=== PATIENT | male | born 1965 | race Caucasian/White ===

== ENCOUNTER 2016-04-12 08:01 | Outpatient (CLI) ==
[2016-02-21 23:30] VITALS: BMI 22.4
[2016-04-12 08:36] LABS: ALBUMIN 3.9 g/dL (3.4-5.0); ALBUMIN/GLOBULIN RATIO 1.26; ANION GAP 13.7; BILIRUBIN,TOTAL 2.33 mg/dL (0.00-1.20); CALCIUM 9.4 mg/dL (8.2-10.2); POTASSIUM 4.7 mmol/L (3.5-5.1)
== END 2016-04-12 08:02 | disposition home or self-care (01) ==
LOC: LAB 08:01
PROVIDERS: ATTEND Internal Medicine Endocrinology, Diabetes & Metabolism
DX: E10.9 Type 1 diabetes mellitus without complications (principal); E78.5 Hyperlipidemia, unspecified
CPT/HCPCS: 36415; 80053; 82043; 83036

== ENCOUNTER 2016-07-14 16:30 | Emergency (ER) | payer OTHER ==
[2016-07-14 16:47] VITALS: BP 84/55; TEMP 97.7; BMI 21.0
--- NOTE | 2016-07-14 16:58 | ED.PDOC ---
General ED Provider: Dr. 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 BP 70/44. 84/[address] Ornelas end stage kidney failure. Drowsy alert oriented [ End ]30 minutes dizziness 97.7 58 18 92% 84/55 Time Seen by Physician: 16:56 Mode of Arrival: Wheelchair Information Source: Patient Exam Limitations: No limitations Primary Care Provider: FRANK VELASCO Nursing and Triage Documentation Reviewed and Agree: No Review of Systems - Review Of Systems Constitutional: Reports: Malaise, Weakness Eyes: Reports: No symptoms Ears, Nose, Mouth, Throat: Reports: No symptoms Respiratory: Reports: No symptoms Cardiac: Reports: Lightheadedness, Syncope GI: Reports: No symptoms : Reports: No symptoms Musculoskeletal: Reports: No symptoms Skin: Reports: No symptoms Neurological: Reports: No symptoms Endocrine: Reports: Increased thirst Hematologic/Lymphatic: Reports: No symptoms All Other Systems: Other Past Medical History - Past Medical History Previously Healthy: No Endocrine: Reports: DM 1 Cardiovascular: Reports: None, Hypertension Respiratory: Reports: None Hematological: Reports: None Gastrointestinal: Reports: None Genitourinary: Reports: CKD (stage 2 ) Neuro/Psych: Reports: None, Depression Musculoskeletal: Reports: Joint Pain Cancer: Reports: None - Surgical History General Surgical History: Reports: None, Orthopedic (trigger release right hand , shoulder manipulation bilateraly), Back Surgery (cervical spine fusion), Other (both eyes-cataracts) - Family History Family History: Reports: None - Social History Smoking Status: Former smoker Hx Substance Use: No Alcohol Screening: None Physical Exam - Physical Exam Appearance: Ill-appearing, Thin Ill-appearing: Mild Pain Distress: Mild Eyes: PRIYANKA, EOMI, Conjunctiva clear ENT: Ears normal, Nose normal, Oropharynx normal Neck: Supple Respiratory: Airway patent, Breath sounds clear, Breath sounds equal, Respirations nonlabored Cardiovascular: RRR, Pulses normal, Bradycardia GI/: Soft Musculoskeletal: Normal strength, ROM intact, No edema, No calf tenderness Skin: Warm, Dry, Normal color Neurological: Sensation intact, Motor intact, Reflexes intact, Cranial nerves intact, Alert, Oriented Psychiatric: Affect appropriate, Mood appropriate Interpretation - EKG Interpretation Time of EKG #1: 17:12 Rate: Ford Rhythm: Sinus ST Segment: Other (ant t inversion) Physician Notification - Case Discussed Physician Notified: jeffry Cameron([email or web address])[phone] Time of Notification: 17:45 Physician Notified: DR TENA' RN WILLIAMS WILL CALL BACK Time of Notification: 18:17 (19:15-ACCEPTED BY [facility] FOR DR CARLOS A KIM AT TRANSFER CENTER WILL CALL WITH ROOM) Critical Care Note - Critical Care Note Total Time (mins): 30 Course - Course Hematology/Chemistry: 07/14/16 17:00 07/14/16 17:00 Orders, Labs, Meds: Lab Review 07/14/16 17:00 WBC 8.37 RBC 5.01 Hgb 15.6 Hct 44.7 MCV 89.2 MCH 31.1 H MCHC 34.9 RDW Coeff of Seth 13.0 Plt Count 209 Immature Gran % (Auto) 0.1 Neut % (Auto) 59.2 Lymph % (Auto) 31.8 [place] % (Auto) 8.0 Eos % (Auto) 0.1 Baso % (Auto) 0.8 Immature Gran # (Auto) 0.0 Neut # 5.0 Lymph # 2.7 [place] # 0.7 Eos # 0.0 Baso # 0.1 D-Dimer (Manual) 408.34 Sodium 139 Potassium 3.5 Chloride 101 Carbon Dioxide 25 Anion Gap 16.5 BUN 16 Creatinine 1.10 Estimated GFR (MDRD) 71.00 BUN/Creatinine Ratio 14.54 Glucose 120 H Lactic Acid 15.5 Calcium 9.6 Total Bilirubin 1.19 AST 16 ALT 16 Alkaline Phosphatase 90 Total Creatine Kinase 34 Troponin I < 0.0100 B-Natriuretic Peptide 17 Total Protein 7.3 Albumin 4.0 Globulin 3.3 Albumin/Globulin Ratio 1.21 Procalcitonin 0.05 Orders Category Date Time Status EKG-(ED ONLY) Stat CARDIO 07/14/16 16:36 Completed Orthostatic [ED ORTHOSTATIC VITAL SIGNS] .ONCE EMERGENCY 07/14/16 16:36 Active B-TYPE NATRIURETIC PEPTIDE Stat LAB 07/14/16 17:00 Completed BLOOD CULTURE Stat LAB 07/14/16 17:00 Received CBC W/ AUTO DIFF Stat LAB 07/14/16 17:00 Completed COMPREHENSIVE METABOLIC PANEL Stat LAB 07/14/16 17:00 Completed CREATINE KINASE Stat LAB 07/14/16 17:00 Completed D-DIMER Stat LAB 07/14/16 17:00 Completed LACTIC ACID Stat LAB 07/14/16 17:00 Completed PROCALCITONIN Stat LAB 07/14/16 17:00 Completed TROPONIN I Stat LAB 07/14/16 17:00 Completed CHEST, 1V AP ONLY Stat RADS 07/14/16 16:36 Completed Vital Signs: Temp Pulse Resp BP Pulse Ox 07/14/16 16:34 97.7 F 58 L 18 84/55 L 92 L Departure - Departure Time of Disposition: 19:18 Disposition: TSF SHORT-TRM HOSP Discharge Problem: Bradycardia with 41-50 beats per minute Condition: Stable Pt referred to PMD for follow-up: Yes Allergies/Adverse Reactions: Allergies NSAIDS (Non-Steroidal Anti-Inflamma Adverse Reaction (Verified 07/14/16 16:45) Home Medications: Ambulatory Orders Atorvastatin Calcium [Lipitor] 10 mg PO DAILY 11/01/15 Insulin Pump Controller [Snap Insulin Pump Controller] 1 units PERFUSION DIRECTED 11/01/15 Lisinopril 2.5 mg PO DAILY 11/01/15 Insulin Lispro [Humalog] 100 unit SQ DIRECTED 02/23/16 Cholecalciferol (Vitamin D3) [Vitamin D3] 2,000 unit PO DAILY 07/14/16
[2016-07-14 17:09] LABS: BASOPHILS # (AUTO) 0.1 K/uL (0-0.2); BASOPHILS % (AUTO) 0.8 % (0.0-3.0); EOSINOPHILS % (AUTO) 0.1 % (0.0-7.0); HEMATOCRIT 44.7 % (42.0-52.0); HEMOGLOBIN 15.6 g/dl (14.0-18.0); IMMATURE GRANULOCYTE % (AUTO) 0.1 % (0.0-5.0); LYMPHOCYTES # (AUTO) 2.7 K/uL (0.60-3.4); LYMPHOCYTES % (AUTO) 31.8 (10.0-50.0); MEAN CORPUSCULAR HEMOGLOBIN 31.1 pg (27.0-31.0); MEAN CORPUSCULAR HGB CONC 34.9 (31.8-35.4); MEAN CORPUSCULAR VOLUME 89.2 fl (80.0-94.0); MONOCYTES # (AUTO) 0.7 K/uL (0.4-2.0); NEUTROPHILS % (AUTO) 59.2; PLATELET COUNT 209 10^3/uL (140-440); RED BLOOD COUNT 5.01 10^6/ul (4.70-6.10); WHITE BLOOD COUNT 8.37 K/ul (4.2-10.2)
[2016-07-14 17:35] LABS: ALANINE AMINOTRANSFERASE 16 U/L (12-78); ALBUMIN/GLOBULIN RATIO 1.21; ALKALINE PHOSPHATASE 90 U/L (50-136); ANION GAP 16.5; ASPARTATE AMINO TRANSFERASE 16 U/L (15-37); BILIRUBIN,TOTAL 1.19 mg/dL (0.00-1.20); BLOOD UREA NITROGEN 16 mg/dL (7-18); BUN/CREATININE RATIO 14.54; CALCIUM 9.6 mg/dL (8.2-10.2); CARBON DIOXIDE 25 mmol/L (21-32); CHLORIDE 101 mmol/L (98-107); CREATINE KINASE 34 U/L; GLUCOSE 120 mg/dL (70-100); POTASSIUM 3.5 mmol/L (3.5-5.1); SODIUM 139 mmol/L (136-145); TOTAL PROTEIN 7.3 g/dL (6.4-8.2)
--- NOTE | 2016-07-14 18:31 | DI ---
EXAMINATION: AP chest radiograph. HISTORY: Chest pain COMPARISON: None available. FINDINGS: No focal consolidation, pleural effusion or pneumothorax is identified. The cardiomediastinal silhouette is within normal limits. Lower cervical spine ACDF is seen. IMPRESSION: No acute cardiopulmonary findings.
== END 2016-07-14 20:35 | disposition short-term general hospital (02) ==
LOC: ED 16:30
DX: R00.1 Bradycardia, unspecified (principal); R42 Dizziness and giddiness; R55 Syncope and collapse; E10.9 Type 1 diabetes mellitus without complications; I12.9 Hypertensive chronic kidney disease with stage 1 through stage 4 chronic kidney disease, or unspecified chronic kidney disease; N18.2 Chronic kidney disease, stage 2 (mild); R53.1 Weakness; Z79.4 Long term (current) use of insulin; Z79.899 Other long term (current) drug therapy
CPT/HCPCS: 36415; 80053; 82550; 83605; 83880; 84145; 84484; 85025; 85379; 87040; 93005; 93010; 96360; 99285

== ENCOUNTER 2016-07-14 20:35 | Outpatient (CLI) ==
[2016-07-14 16:47] VITALS: BMI 21.0
== END 2016-07-14 20:36 ==
LOC: AMBL 20:35
PROVIDERS: ATTEND Family Medicine
DX: R53.83 Other fatigue (principal); E11.9 Type 2 diabetes mellitus without complications; R03.1 Nonspecific low blood-pressure reading; N19 Unspecified kidney failure

== ENCOUNTER 2016-09-30 08:51 | Outpatient (CLI) ==
[2016-09-30] MEDS ORDERED: HEPATITIS B VACCINE 20 MCG/ML IM ONE (10:18)
[2016-10-01 06:11] LABS: REF CREATININE 1.11 mg/dL (0.76-1.27); URINE TOTAL PROTEIN 24 HR 6.4 mg/dL (Not Estab.)
== END 2016-09-30 08:52 | disposition home or self-care (01) ==
LOC: LAB 08:51
PROVIDERS: ATTEND Internal Medicine Nephrology
DX: N18.6 End stage renal disease (principal)
CPT/HCPCS: 82575; 84156; 90471

== ENCOUNTER 2016-11-02 09:03 | Outpatient (CLI) ==
[2016-11-02 09:37] VITALS: BP 122/77; TEMP 97.2
[2016-11-02] MEDS ORDERED: HEPATITIS B VACCINE 20 MCG/ML IM ONE (09:37)
== END 2016-11-02 09:04 | disposition home or self-care (01) ==
LOC: OPMED 09:03
PROVIDERS: ATTEND Internal Medicine Nephrology
DX: N18.9 Chronic kidney disease, unspecified (principal)
CPT/HCPCS: 96372

== ENCOUNTER 2016-11-03 09:10 | Outpatient (CLI) ==
[2016-11-03] MEDS ORDERED: PREVNAR 13 SYRINGE IM ONE (09:51)
--- NOTE | 2016-11-03 15:15 | NM ---
EXAM: Gastric emptying study HISTORY: Diabetes. Preoperative evaluation. COMPARISON: None of this type. PROCEDURE: The patient was administered 2 mCi of 99m technetium sulfur colloid with 4 ounces of egg beaters, two piece of toast and 6 ounces of water as a solid phase meal. Imaging of the stomach w as performed at one hour intervals for 3 hours in anterior and posterior projections simultaneously. Subsequently time activity curves were calculated using anterior, posterior and geometric mean kenneth a. The gastric emptying half-time was determined. FINDINGS:The examination demonstrates a normal appearance of activity within the stomach. Sequentia l images demonstrate transit of activity from the stomach into the small bowel. The examination demo nstrates 24% emptying 1 hour, 63% emptying at 2 hours and 92% emptying at 3 hours The gastric emptyi ng half-time is approximately 1 hour 35 minutes. IMPRESSION: 1.The gastric emptying half-time is approximately 1 hour 35 minutes (prolonged) 2.Images of the activity in the stomach and small bowel are within normal limits.
== END 2016-11-03 09:11 | disposition home or self-care (01) ==
LOC: RAD 09:10
PROVIDERS: ATTEND Internal Medicine Nephrology
DX: N18.6 End stage renal disease (principal)
CPT/HCPCS: 90471; 96372

== ENCOUNTER 2016-11-23 13:17 | Outpatient (CLI) | END 2016-11-23 13:18 | disposition home or self-care (01) | LOC: LAB 13:17 | PROVIDERS: ATTEND Transplant Surgery | DX: N18.6 End stage renal disease (principal) | CPT/HCPCS: 36415 ==

== ENCOUNTER 2016-12-09 09:29 | Outpatient (CLI) | payer OTHER ==
[2016-12-09 10:31] VITALS: BP 128/84; TEMP 97.9
[2016-12-09] MEDS: HEPATITIS B VACCINE 20 MCG/ML IM ONE (15:35)
== END 2016-12-09 09:30 | disposition home or self-care (01) ==
LOC: OPMED 09:29
PROVIDERS: ATTEND Internal Medicine Nephrology
DX: N18.6 End stage renal disease (principal)
CPT/HCPCS: 96372

== ENCOUNTER 2016-12-23 14:03 | Outpatient (CLI) | END 2016-12-23 14:04 | disposition home or self-care (01) | LOC: LAB 14:03 | PROVIDERS: ATTEND Transplant Surgery | DX: N18.6 End stage renal disease (principal) | CPT/HCPCS: 36415 ==

== ENCOUNTER 2016-12-29 08:26 | Outpatient (CLI) | payer OTHER ==
[2016-12-29] MEDS ORDERED: PNEUMOVAX 23 IM ONE (08:53)
[2016-12-29 09:16] VITALS: BP 150/93; TEMP 97.8
== END 2016-12-29 09:09 | disposition home or self-care (01) ==
LOC: OPMED 08:26
PROVIDERS: ATTEND Internal Medicine Nephrology
DX: N18.6 End stage renal disease (principal)
CPT/HCPCS: 90471

== ENCOUNTER 2017-01-17 13:06 | Outpatient (CLI) | END 2017-01-17 13:07 | disposition home or self-care (01) | LOC: LAB 13:06 | PROVIDERS: ATTEND Transplant Surgery | DX: N18.6 End stage renal disease (principal) | CPT/HCPCS: 36415 ==

== ENCOUNTER 2017-04-18 08:44 | Outpatient (CLI) | END 2017-04-18 08:45 | disposition home or self-care (01) | LOC: LAB 08:44 | PROVIDERS: ATTEND Internal Medicine Nephrology | DX: Z94.0 Kidney transplant status (principal); Z79.899 Other long term (current) drug therapy; E78.5 Hyperlipidemia, unspecified | CPT/HCPCS: 36415; 80069; 80197; 85025; 87799 ==

== ENCOUNTER 2017-04-25 08:07 | Outpatient (CLI) | END 2017-04-25 08:08 | disposition home or self-care (01) | LOC: LAB 08:07 | PROVIDERS: ATTEND Internal Medicine Nephrology | DX: Z94.0 Kidney transplant status (principal); Z79.899 Other long term (current) drug therapy; E78.5 Hyperlipidemia, unspecified | CPT/HCPCS: 36415; 80069; 80197; 85025 ==

== ENCOUNTER 2017-05-02 08:07 | Outpatient (CLI) | END 2017-05-02 08:08 | disposition home or self-care (01) | LOC: LAB 08:07 | PROVIDERS: ATTEND Internal Medicine Nephrology | DX: Z94.0 Kidney transplant status (principal); Z79.899 Other long term (current) drug therapy; E78.5 Hyperlipidemia, unspecified; E10.65 Type 1 diabetes mellitus with hyperglycemia; R73.9 Hyperglycemia, unspecified | CPT/HCPCS: 36415; 80069; 80197; 82150; 83690; 85025; 87799 ==

== ENCOUNTER 2017-05-09 08:13 | Outpatient (CLI) | END 2017-05-09 08:14 | disposition home or self-care (01) | LOC: LAB 08:13 | PROVIDERS: ATTEND Internal Medicine Nephrology | DX: Z94.0 Kidney transplant status (principal); Z79.899 Other long term (current) drug therapy; E78.5 Hyperlipidemia, unspecified | CPT/HCPCS: 36415; 80069; 80197; 85025 ==

== ENCOUNTER 2017-05-16 08:15 | Outpatient (CLI) | END 2017-05-16 08:16 | disposition home or self-care (01) | LOC: LAB 08:15 | PROVIDERS: ATTEND Internal Medicine Nephrology | DX: Z94.0 Kidney transplant status (principal); Z79.899 Other long term (current) drug therapy; E78.5 Hyperlipidemia, unspecified | CPT/HCPCS: 36415; 80069; 80197; 85025 ==

== ENCOUNTER 2017-05-22 08:39 | Outpatient (CLI) | END 2017-05-22 08:40 | disposition home or self-care (01) | LOC: LAB 08:39 | PROVIDERS: ATTEND Internal Medicine Nephrology | DX: Z94.0 Kidney transplant status (principal); Z79.899 Other long term (current) drug therapy; E78.5 Hyperlipidemia, unspecified | CPT/HCPCS: 36415; 80069; 80197; 85025 ==

== ENCOUNTER 2017-05-30 07:23 | Outpatient (CLI) | END 2017-05-30 07:24 | disposition home or self-care (01) | LOC: LAB 07:23 | PROVIDERS: ATTEND Internal Medicine Nephrology | DX: Z94.0 Kidney transplant status (principal); Z79.899 Other long term (current) drug therapy; E78.5 Hyperlipidemia, unspecified | CPT/HCPCS: 36415; 80053; 80061; 80197; 84100; 85007; 85025; 87799 ==

== ENCOUNTER 2017-06-06 08:06 | Outpatient (CLI) | END 2017-06-06 08:07 | disposition home or self-care (01) | LOC: LAB 08:06 | PROVIDERS: ATTEND Internal Medicine Nephrology | DX: Z94.0 Kidney transplant status (principal); Z79.899 Other long term (current) drug therapy; E78.5 Hyperlipidemia, unspecified | CPT/HCPCS: 36415; 80069; 80197; 85025 ==

== ENCOUNTER 2017-06-13 07:48 | Outpatient (CLI) | payer OTHER | END 2017-06-13 07:49 | disposition home or self-care (01) | LOC: LAB 07:48 | PROVIDERS: ATTEND Internal Medicine Nephrology | DX: Z94.0 Kidney transplant status (principal); Z79.899 Other long term (current) drug therapy; E78.5 Hyperlipidemia, unspecified; E10.65 Type 1 diabetes mellitus with hyperglycemia; R73.9 Hyperglycemia, unspecified | CPT/HCPCS: 36415; 80069; 80197; 82150; 83690; 85025 ==

== ENCOUNTER 2017-06-21 07:42 | Outpatient (CLI) | END 2017-06-21 07:43 | disposition home or self-care (01) | LOC: LAB 07:42 | PROVIDERS: ATTEND Internal Medicine Nephrology | DX: Z94.0 Kidney transplant status (principal); Z79.899 Other long term (current) drug therapy; E78.5 Hyperlipidemia, unspecified; E10.65 Type 1 diabetes mellitus with hyperglycemia; R73.9 Hyperglycemia, unspecified | CPT/HCPCS: 36415; 80069; 80197; 82150; 83690; 85007; 85025 ==

== ENCOUNTER 2017-06-27 08:10 | Outpatient (CLI) | END 2017-06-27 08:11 | disposition home or self-care (01) | LOC: LAB 08:10 | PROVIDERS: ATTEND Internal Medicine Nephrology | DX: Z94.0 Kidney transplant status (principal); Z79.899 Other long term (current) drug therapy; E78.5 Hyperlipidemia, unspecified; E10.65 Type 1 diabetes mellitus with hyperglycemia; R73.9 Hyperglycemia, unspecified | CPT/HCPCS: 36415; 80069; 80197; 82150; 83690; 85025 ==

== ENCOUNTER 2017-07-04 08:00 | Outpatient (CLI) | END 2017-07-04 08:01 | disposition home or self-care (01) | LOC: LAB 08:00 | PROVIDERS: ATTEND Internal Medicine Nephrology | DX: Z94.0 Kidney transplant status (principal); Z79.899 Other long term (current) drug therapy; E78.5 Hyperlipidemia, unspecified; E10.65 Type 1 diabetes mellitus with hyperglycemia; R73.9 Hyperglycemia, unspecified | CPT/HCPCS: 36415; 80069; 80197; 82150; 83690; 85025; 87799 ==

== ENCOUNTER 2017-07-11 08:05 | Outpatient (CLI) | END 2017-07-11 08:06 | disposition home or self-care (01) | LOC: LAB 08:05 | PROVIDERS: ATTEND Internal Medicine Nephrology | DX: Z94.0 Kidney transplant status (principal); Z79.899 Other long term (current) drug therapy; E78.5 Hyperlipidemia, unspecified; E10.65 Type 1 diabetes mellitus with hyperglycemia; R73.9 Hyperglycemia, unspecified | CPT/HCPCS: 36415; 80069; 80197; 82150; 83690; 85025 ==

== ENCOUNTER 2017-07-26 07:38 | Outpatient (CLI) | END 2017-07-26 07:39 | disposition home or self-care (01) | LOC: LAB 07:38 | PROVIDERS: ATTEND Internal Medicine Nephrology | DX: Z94.0 Kidney transplant status (principal); Z79.899 Other long term (current) drug therapy; E78.5 Hyperlipidemia, unspecified; E10.65 Type 1 diabetes mellitus with hyperglycemia; R73.9 Hyperglycemia, unspecified | CPT/HCPCS: 36415; 80069; 80197; 82150; 83690; 85025 ==

== ENCOUNTER 2017-08-02 07:42 | Outpatient (CLI) | payer OTHER | END 2017-08-02 07:43 | disposition home or self-care (01) | LOC: LAB 07:42 | PROVIDERS: ATTEND Internal Medicine Nephrology | DX: Z94.0 Kidney transplant status (principal); Z79.899 Other long term (current) drug therapy; E78.5 Hyperlipidemia, unspecified; E10.65 Type 1 diabetes mellitus with hyperglycemia; R73.9 Hyperglycemia, unspecified | CPT/HCPCS: 36415; 80069; 80197; 82150; 83690; 85025 ==

== ENCOUNTER 2017-08-09 07:58 | Outpatient (CLI) | payer OTHER | END 2017-08-09 07:59 | disposition home or self-care (01) | LOC: LAB 07:58 | PROVIDERS: ATTEND Internal Medicine Nephrology | DX: Z94.0 Kidney transplant status (principal); Z79.899 Other long term (current) drug therapy; E78.5 Hyperlipidemia, unspecified; E10.65 Type 1 diabetes mellitus with hyperglycemia; R73.9 Hyperglycemia, unspecified | CPT/HCPCS: 36415; 80069; 80197; 82150; 83690; 85025 ==

== ENCOUNTER 2017-08-15 06:35 | Outpatient (CLI) | END 2017-08-15 06:36 | disposition home or self-care (01) | LOC: LAB 06:35 | PROVIDERS: ATTEND Internal Medicine Nephrology | DX: Z94.0 Kidney transplant status (principal); Z79.899 Other long term (current) drug therapy; E78.5 Hyperlipidemia, unspecified; E10.65 Type 1 diabetes mellitus with hyperglycemia; R73.9 Hyperglycemia, unspecified | CPT/HCPCS: 36415; 80069; 80197; 82150; 83690; 85025; 87799 ==

== ENCOUNTER 2017-08-23 07:48 | Outpatient (CLI) | END 2017-08-23 07:49 | disposition home or self-care (01) | LOC: LAB 07:48 | PROVIDERS: ATTEND Internal Medicine Nephrology | DX: Z94.83 Pancreas transplant status (principal); D89.9 Disorder involving the immune mechanism, unspecified; R79.89 Other specified abnormal findings of blood chemistry; E78.5 Hyperlipidemia, unspecified; R73.09 Other abnormal glucose | CPT/HCPCS: 36415; 80069; 80197; 82150; 83690; 85025 ==

== ENCOUNTER 2017-08-30 08:11 | Outpatient (CLI) | payer OTHER | END 2017-08-30 08:12 | disposition home or self-care (01) | LOC: LAB 08:11 | PROVIDERS: ATTEND Internal Medicine Nephrology | DX: Z94.83 Pancreas transplant status (principal); R73.09 Other abnormal glucose; E78.5 Hyperlipidemia, unspecified; R79.89 Other specified abnormal findings of blood chemistry; D89.9 Disorder involving the immune mechanism, unspecified | CPT/HCPCS: 36415; 80053; 80061; 80197; 82150; 83036; 83690; 84100; 84681; 85025 ==

== ENCOUNTER 2017-09-05 08:00 | Outpatient (CLI) | payer OTHER | END 2017-09-05 08:01 | disposition home or self-care (01) | LOC: LAB 08:00 | PROVIDERS: ATTEND Internal Medicine Nephrology | DX: Z94.83 Pancreas transplant status (principal); D89.9 Disorder involving the immune mechanism, unspecified; E78.5 Hyperlipidemia, unspecified; R73.09 Other abnormal glucose; R79.89 Other specified abnormal findings of blood chemistry | CPT/HCPCS: 36415; 80069; 80197; 82150; 83690; 85025 ==

== ENCOUNTER 2017-09-13 08:13 | Outpatient (CLI) | END 2017-09-13 08:14 | disposition home or self-care (01) | LOC: LAB 08:13 | PROVIDERS: ATTEND Internal Medicine Nephrology | DX: Z94.83 Pancreas transplant status (principal); D89.9 Disorder involving the immune mechanism, unspecified; R79.89 Other specified abnormal findings of blood chemistry; E78.5 Hyperlipidemia, unspecified; R73.09 Other abnormal glucose | CPT/HCPCS: 36415; 80069; 80197; 82150; 83690; 85025 ==

== ENCOUNTER 2017-09-20 08:23 | Outpatient (CLI) | END 2017-09-20 08:24 | disposition home or self-care (01) | LOC: LAB 08:23 | PROVIDERS: ATTEND Internal Medicine Nephrology | DX: Z94.83 Pancreas transplant status (principal); D89.9 Disorder involving the immune mechanism, unspecified; R79.89 Other specified abnormal findings of blood chemistry; E78.5 Hyperlipidemia, unspecified; R73.09 Other abnormal glucose | CPT/HCPCS: 36415; 80069; 80197; 82150; 83690; 85025 ==

== ENCOUNTER 2017-09-27 08:10 | Outpatient (CLI) | END 2017-09-27 08:11 | disposition home or self-care (01) | LOC: LAB 08:10 | PROVIDERS: ATTEND Internal Medicine Nephrology | DX: Z94.83 Pancreas transplant status (principal); D89.9 Disorder involving the immune mechanism, unspecified; R79.89 Other specified abnormal findings of blood chemistry; E78.5 Hyperlipidemia, unspecified; R73.09 Other abnormal glucose | CPT/HCPCS: 36415; 85025 ==

== ENCOUNTER 2017-10-04 07:19 | Outpatient (CLI) | END 2017-10-04 07:20 | disposition home or self-care (01) | LOC: LAB 07:19 | PROVIDERS: ATTEND Internal Medicine Nephrology | DX: Z94.83 Pancreas transplant status (principal); D89.9 Disorder involving the immune mechanism, unspecified; R79.89 Other specified abnormal findings of blood chemistry; E78.5 Hyperlipidemia, unspecified; R73.09 Other abnormal glucose | CPT/HCPCS: 36415; 80069; 80197; 82150; 83690 ==

== ENCOUNTER 2017-10-11 08:13 | Outpatient (CLI) | payer OTHER | END 2017-10-11 08:14 | disposition home or self-care (01) | LOC: LAB 08:13 | PROVIDERS: ATTEND Internal Medicine Nephrology | DX: Z94.83 Pancreas transplant status (principal); D89.9 Disorder involving the immune mechanism, unspecified; R79.89 Other specified abnormal findings of blood chemistry; E78.5 Hyperlipidemia, unspecified; R73.09 Other abnormal glucose | CPT/HCPCS: 36415; 80069; 80197; 82150; 83690; 85025 ==

== ENCOUNTER 2017-11-16 07:05 | Outpatient (CLI) | END 2017-11-16 07:06 | disposition home or self-care (01) | LOC: LAB 07:05 | PROVIDERS: ATTEND Internal Medicine Nephrology | DX: Z94.83 Pancreas transplant status (principal); D89.9 Disorder involving the immune mechanism, unspecified; R79.89 Other specified abnormal findings of blood chemistry; E78.5 Hyperlipidemia, unspecified; R73.09 Other abnormal glucose | CPT/HCPCS: 36415; 80069; 80197; 82150; 83690; 85025 ==

== ENCOUNTER 2017-11-30 07:45 | Outpatient (CLI) | payer OTHER | END 2017-11-30 07:46 | disposition home or self-care (01) | LOC: LAB 07:45 | PROVIDERS: ATTEND Internal Medicine Nephrology | DX: Z94.83 Pancreas transplant status (principal); R79.89 Other specified abnormal findings of blood chemistry; D89.9 Disorder involving the immune mechanism, unspecified; E78.5 Hyperlipidemia, unspecified; R73.09 Other abnormal glucose | CPT/HCPCS: 36415; 80053; 80061; 80197; 82150; 83036; 83690; 84100; 84681; 85025 ==

== ENCOUNTER 2018-01-02 07:07 | Outpatient (CLI) | END 2018-01-02 07:08 | disposition home or self-care (01) | LOC: LAB 07:07 | PROVIDERS: ATTEND Internal Medicine Nephrology | DX: Z94.83 Pancreas transplant status (principal); R53.83 Other fatigue; E78.5 Hyperlipidemia, unspecified; D89.9 Disorder involving the immune mechanism, unspecified; R79.89 Other specified abnormal findings of blood chemistry; R73.09 Other abnormal glucose | CPT/HCPCS: 36415; 80069; 80197; 82150; 83690; 84443; 85025; 87799 ==

== ENCOUNTER 2018-01-17 06:42 | Outpatient (CLI) | payer OTHER | END 2018-01-17 06:43 | disposition home or self-care (01) | LOC: LAB 06:42 | PROVIDERS: ATTEND Internal Medicine Nephrology | DX: Z94.83 Pancreas transplant status (principal); D89.9 Disorder involving the immune mechanism, unspecified; R79.89 Other specified abnormal findings of blood chemistry; E78.5 Hyperlipidemia, unspecified; R73.09 Other abnormal glucose | CPT/HCPCS: 36415; 80069; 80197; 82150; 83690; 85025 ==

== ENCOUNTER 2018-02-24 | Outpatient (CLI) | END 2018-02-24 07:38 | disposition home or self-care (01) | CPT/HCPCS: 36415; 80069; 80197; 82150; 83690; 85025 ==

== ENCOUNTER 2018-03-03 07:29 | Outpatient (CLI) | END 2018-03-03 07:30 | disposition home or self-care (01) | LOC: LAB 07:29 | PROVIDERS: ATTEND Internal Medicine Nephrology | DX: Z94.0 Kidney transplant status (principal); D89.9 Disorder involving the immune mechanism, unspecified; B25.9 Cytomegaloviral disease, unspecified | CPT/HCPCS: 36415; 80069; 80197; 82150; 83690; 85025 ==

== ENCOUNTER 2018-03-10 07:30 | Outpatient (CLI) | payer OTHER | END 2018-03-10 07:31 | disposition home or self-care (01) | LOC: LAB 07:30 | PROVIDERS: ATTEND Internal Medicine Nephrology | DX: Z94.0 Kidney transplant status (principal); D89.9 Disorder involving the immune mechanism, unspecified; B25.9 Cytomegaloviral disease, unspecified | CPT/HCPCS: 36415; 80069; 80197; 82150; 83690; 85025 ==

== ENCOUNTER 2018-03-17 07:24 | Outpatient (CLI) | END 2018-03-17 07:25 | disposition home or self-care (01) | LOC: LAB 07:24 | PROVIDERS: ATTEND Internal Medicine Nephrology | DX: Z94.0 Kidney transplant status (principal); D89.9 Disorder involving the immune mechanism, unspecified; B25.9 Cytomegaloviral disease, unspecified | CPT/HCPCS: 36415; 80069; 80197; 82150; 83690; 85025 ==

== ENCOUNTER 2018-03-31 07:20 | Outpatient (CLI) | payer OTHER | END 2018-03-31 07:21 | disposition home or self-care (01) | LOC: LAB 07:20 | PROVIDERS: ATTEND Internal Medicine Nephrology | DX: Z94.0 Kidney transplant status (principal); D89.9 Disorder involving the immune mechanism, unspecified; B25.9 Cytomegaloviral disease, unspecified | CPT/HCPCS: 36415; 80069; 80197; 82150; 83690; 85025 ==

== ENCOUNTER 2018-04-07 08:04 | Outpatient (CLI) | payer OTHER | END 2018-04-07 08:05 | disposition home or self-care (01) | LOC: LAB 08:04 | PROVIDERS: ATTEND Internal Medicine Nephrology | DX: Z94.0 Kidney transplant status (principal); D89.9 Disorder involving the immune mechanism, unspecified; B25.9 Cytomegaloviral disease, unspecified | CPT/HCPCS: 36415; 80069; 80197; 82150; 83690; 85025 ==

== ENCOUNTER 2018-04-14 07:08 | Outpatient (CLI) | END 2018-04-14 07:09 | disposition home or self-care (01) | LOC: LAB 07:08 | PROVIDERS: ATTEND Internal Medicine Nephrology | DX: Z94.0 Kidney transplant status (principal); D89.9 Disorder involving the immune mechanism, unspecified; B25.9 Cytomegaloviral disease, unspecified | CPT/HCPCS: 36415; 80069; 80197; 82150; 83690; 85025 ==

== ENCOUNTER 2018-04-21 08:23 | Outpatient (CLI) | payer OTHER | END 2018-04-21 08:24 | disposition home or self-care (01) | LOC: LAB 08:23 | PROVIDERS: ATTEND Internal Medicine Nephrology | DX: Z94.0 Kidney transplant status (principal); D89.9 Disorder involving the immune mechanism, unspecified; B25.9 Cytomegaloviral disease, unspecified | CPT/HCPCS: 36415; 80069; 80197; 82150; 83690; 85025 ==

== ENCOUNTER 2018-05-02 08:01 | Outpatient (CLI) | payer OTHER | END 2018-05-02 08:02 | disposition home or self-care (01) | LOC: LAB 08:01 | PROVIDERS: ATTEND Internal Medicine Nephrology | DX: Z94.0 Kidney transplant status (principal); D89.9 Disorder involving the immune mechanism, unspecified; B25.9 Cytomegaloviral disease, unspecified | CPT/HCPCS: 36415; 80069; 80197; 82150; 83690; 85025 ==

== ENCOUNTER 2018-05-11 07:43 | Outpatient (CLI) | END 2018-05-11 07:44 | disposition home or self-care (01) | LOC: LAB 07:43 | PROVIDERS: ATTEND Internal Medicine Nephrology | DX: Z94.0 Kidney transplant status (principal); D89.9 Disorder involving the immune mechanism, unspecified; B25.9 Cytomegaloviral disease, unspecified | CPT/HCPCS: 36415; 80069; 80197; 82150; 83690; 85025 ==

== ENCOUNTER 2018-05-23 07:42 | Outpatient (CLI) | END 2018-05-23 07:43 | disposition home or self-care (01) | LOC: LAB 07:42 | PROVIDERS: ATTEND Internal Medicine Nephrology | DX: Z94.0 Kidney transplant status (principal); D89.9 Disorder involving the immune mechanism, unspecified; B25.9 Cytomegaloviral disease, unspecified | CPT/HCPCS: 36415; 80069; 80197; 82150; 83690; 85025 ==

== ENCOUNTER 2018-06-02 06:42 | Outpatient (CLI) | END 2018-06-02 06:43 | disposition home or self-care (01) | LOC: LAB 06:42 | PROVIDERS: ATTEND Internal Medicine Nephrology | DX: Z94.0 Kidney transplant status (principal); D89.9 Disorder involving the immune mechanism, unspecified; B25.9 Cytomegaloviral disease, unspecified | CPT/HCPCS: 36415; 80069; 80197; 82150; 83690; 85025 ==

== ENCOUNTER 2018-06-05 07:59 | Outpatient (CLI) | payer OTHER | END 2018-06-05 08:00 | disposition home or self-care (01) | LOC: LAB 07:59 | PROVIDERS: ATTEND Internal Medicine Nephrology | DX: Z94.0 Kidney transplant status (principal); E10.29 Type 1 diabetes mellitus with other diabetic kidney complication; E10.65 Type 1 diabetes mellitus with hyperglycemia; Z94.83 Pancreas transplant status; D89.9 Disorder involving the immune mechanism, unspecified; B25.9 Cytomegaloviral disease, unspecified | CPT/HCPCS: 36415; 80069; 80197; 82150; 83036; 83690; 84681; 85025 ==

== ENCOUNTER 2018-06-06 16:19 | Emergency (ER) ==
[2018-06-06 16:28] VITALS: BP 132/81; TEMP 99; BMI 19.2
[2018-06-06] MEDS ORDERED: SODIUM CHLORIDE 1,000 ML IV STA (16:57)
[2018-06-06] MEDS ORDERED: ZOFRAN 4 MG/2 ML IVP STA (16:57)
[2018-06-06] MEDS ORDERED: DILAUDID 1 MG/ML SYRINGE IVP STA (16:58)
--- NOTE | 2018-06-06 17:03 | ED.PDOC ---
General ED Provider: Dr. LYSSA GALLOWAY Chief Complaint: Abdominal Pain Stated Complaint: severe abdominal pain.acute pancreatic pain. Patient is a pancreatic transplant recepient. Onset of severe pain in Rt LOWER ABDOMEN earlier today. Pain in 12/07 with associated nausea but no emesis Time Seen by Physician: 16:45 Mode of Arrival: Walk-In Information Source: Patient Exam Limitations: No limitations Primary Care Provider: FRANK VELASCO Nursing and Triage Documentation Reviewed and Agree: Yes Does patient meet sepsis criteria?: No System Inflammatory Response Syndrome: Not Applicable Sepsis Protocol: For patient's 13 years and over: Temp is 96.8 and below OR 101 and greater Pulse >90 BPM Resp >20/minute Acutely Altered Mental Status Are patient's symptoms suggestive of a new infection, such as: -Pneumonia -Skin, Soft Tissue -Endocarditis -UTI -Bone, Joint Infection -Implantable Device -Acute Abdominal Infection -Wound Infection -Meningitis -Blood Stream Catheter Infection -Unknown Review of Systems - Review Of Systems Constitutional: Reports: Weakness, Sweats, Loss of appetite Eyes: Reports: No symptoms Ears, Nose, Mouth, Throat: Reports: No symptoms Respiratory: Reports: No symptoms Cardiac: Reports: No symptoms GI: Reports: Abdominal pain : Reports: No symptoms Musculoskeletal: Reports: No symptoms Skin: Reports: No symptoms Neurological: Reports: No symptoms Endocrine: Reports: No symptoms Hematologic/Lymphatic: Reports: No symptoms All Other Systems: Reviewed and Negative Past Medical History - Past Medical History Previously Healthy: No Endocrine: Reports: DM 1 Cardiovascular: Reports: None, Hypertension Respiratory: Reports: None Hematological: Reports: None Gastrointestinal: Reports: None Genitourinary: Reports: CKD (stage 2 ) Neuro/Psych: Reports: None, Depression Musculoskeletal: Reports: Joint Pain Cancer: Reports: None Other Pertinent Past Medical History: both eyes-cataracts, cervical spine fusion - Surgical History General Surgical History: Reports: None, Orthopedic (trigger release right hand , shoulder manipulation bilateraly), Back Surgery (cervical spine fusion), Other (both eyes-cataracts, PANCREATIC TRANSPLANT) - Family History Family History: Reports: None - Social History Smoking Status: Former smoker Hx Substance Use: No Alcohol Screening: None Physical Exam - Physical Exam Appearance: Ill-appearing, Thin Ill-appearing: Moderate Pain Distress: Severe Eyes: PRIYANKA, EOMI, Conjunctiva clear ENT: Ears normal, Nose normal, Oropharynx normal Neck: Supple Respiratory: Airway patent Cardiovascular: RRR, Pulses normal, No rub, No murmur GI/: Soft, Tender, Bowel sounds hypoactive Musculoskeletal: Normal strength, ROM intact, No edema, No calf tenderness Skin: Warm, Dry, Normal color Neurological: Sensation intact, Motor intact, Reflexes intact, Cranial nerves intact, Alert, Oriented Psychiatric: Affect appropriate, Mood appropriate Re-Evaluation - Re-Evaluation Time of Re-Evaluation: 19:00 Status: Improved Vital Signs Stable: Yes Appearance: NAD Lungs: Clear Skin: Warm and Dry Neuro: Alert and Oriented X3 CV: RRR Critical Care Note - Critical Care Note Total Time (mins): 120 Course - Course Hematology/Chemistry: 06/06/18 17:10 06/06/18 17:10 Orders, Labs, Meds: Lab Review 06/06/18 06/06/18 06/06/18 17:09 17:10 17:10 WBC 12.50 H RBC 4.73 Hgb 14.9 Hct 43.4 MCV 91.8 MCH 31.5 H MCHC 34.3 RDW Coeff of Seth 13.6 Plt Count 396 Immature Gran % (Auto) 0.2 Neut % (Auto) 85.0 Lymph % (Auto) 12.0 [place] % (Auto) 2.5 Eos % (Auto) 0.0 Baso % (Auto) 0.3 Immature Gran # (Auto) 0.0 Neut # (Auto) 10.6 H Lymph # (Auto) 1.5 [place] # (Auto) 0.3 L Eos # (Auto) 0.0 Baso # (Auto) 0.0 PT 11.5 H INR 1.15 APTT 32.3 Sodium Potassium Chloride Carbon Dioxide Anion Gap BUN Creatinine Estimated GFR (MDRD) BUN/Creatinine Ratio Glucose Lactic Acid Calcium Total Bilirubin AST ALT Alkaline Phosphatase Total Protein Albumin Globulin Albumin/Globulin Ratio Amylase 152.7 H Lipase Procalcitonin 06/06/18 06/06/18 06/06/18 17:10 17:10 17:10 WBC RBC Hgb Hct MCV MCH MCHC RDW Coeff of Seth Plt Count Immature Gran % (Auto) Neut % (Auto) Lymph % (Auto) [place] % (Auto) Eos % (Auto) Baso % (Auto) Immature Gran # (Auto) Neut # (Auto) Lymph # (Auto) [place] # (Auto) Eos # (Auto) Baso # (Auto) PT INR APTT Sodium 137.2 Potassium 4.02 Chloride 102.5 Carbon Dioxide 24.9 Anion Gap 13.82 BUN 20.2 H Creatinine 1.22 H Estimated GFR (MDRD) 63.00 BUN/Creatinine Ratio 16.55 Glucose 124.1 H Lactic Acid 1.11 Calcium 9.51 Total Bilirubin 1.07 AST 24.7 ALT 13.9 Alkaline Phosphatase 93.6 Total Protein 7.35 Albumin 4.49 Globulin 2.86 Albumin/Globulin Ratio 1.56 Amylase Lipase 254.3 Procalcitonin < 0.05 Orders Category Date Time Status IV [ED IV/MEDIPORT/POWERPORT] .ONCE EMERGENCY 06/06/18 16:55 Active AMYLASE Stat LAB 06/06/18 17:09 Completed BLOOD CULTURE (ED ONLY) Stat LAB 06/06/18 17:10 Received CBC W/ AUTO DIFF Stat LAB 06/06/18 17:10 Completed CMP [COMPREHENSIVE METABOLIC PANEL] Stat LAB 06/06/18 17:10 Completed LACTIC ACID Stat LAB 06/06/18 17:10 Completed LIPASE Stat LAB 06/06/18 17:10 Completed PARTIAL THROMBOPLASTIN TIME Stat LAB 06/06/18 17:10 Completed PROCALCITONIN Stat LAB 06/06/18 17:10 Completed PT WITH INR Stat LAB 06/06/18 17:10 Completed UA [URINALYSIS C & S IF INDICATED] Stat LAB 06/06/18 16:56 Uncollected 0.9 % Sodium Chloride [Saline Flush] MEDS 06/06/18 16:55 Active 1 syr IVF PRN PRN Hydromorphone HCl [Dilaudid 1 mg/ml Syringe] MEDS 06/06/18 18:40 Discontinued 1 mg IM ONCE STA Hydromorphone HCl [Dilaudid 1 mg/ml Syringe] MEDS 06/06/18 16:58 Discontinued 1 mg IVP ONCE STA Ondansetron HCl/Pf [Zofran 4 mg/2 ml] MEDS 06/06/18 16:57 Discontinued 4 mg IVP ONCE STA Piperacillin Sodium/Tazobactam [Zosyn 3.375 gm] 3.375 MEDS 06/06/18 18:51 Active gm 0.9 % Sodium Chloride [Sodium Chloride] 50 ml IV ONCE Sodium Chloride 0.9% [Sodium Chloride] 1,000 ml MEDS 06/06/18 16:[address] ABDOMEN/PELVIS WO CONTRAST Stat RADS 06/06/18 17:08 Completed Medications Generic Name Dose Route Start Last Admin Trade Name Freanny PRN Reason Stop Dose Admin Piperacillin Sod/Tazobactam 50 mls @ 50 mls/hr 06/06/18 18:51 06/06/18 19:01 Sod 3.375 gm/ Sodium Chloride IV 06/06/18 19:50 50 mls/hr ONCE STA Administration Sodium Chloride 1 syr 06/06/18 16:55 Saline Flush IVF PRN PRN To flush IV Discontinued Medications Generic Name Dose Route Start Last Admin Trade Name Freq PRN Reason Stop Dose Admin Hydromorphone HCl 1 mg 06/06/18 16:58 06/06/18 17:29 Dilaudid 1 Mg/Ml Syringe IVP 06/06/18 16:59 1 mg ONCE STA Administration Hydromorphone HCl 1 mg 06/06/18 18:40 06/06/18 18:43 Dilaudid 1 Mg/Ml Syringe IM 06/06/18 18:41 1 mg ONCE STA Administration Sodium Chloride 1,000 mls @ 1,000 mls/hr 06/06/18 16:57 06/06/18 17:28 Sodium Chloride IV 06/06/18 17:56 1,000 mls/hr BOLUS STA Administration Ondansetron HCl 4 mg 06/06/18 16:57 06/06/18 17:31 Zofran 4 Mg/2 Ml IVP 06/06/18 16:58 4 mg ONCE STA Administration Vital Signs: Temp Pulse Resp BP Pulse Ox 06/06/18 16:21 99.0 F 98 H 20 132/81 98 Departure - Departure Time of Disposition: 19:40 Disposition: TSF SHORT-TRM HOSP Discharge Problem: Acute abdominal pain in right lower quadrant Condition: Stable Pt referred to PMD for follow-up: Yes IPMP verified?: No Allergies/Adverse Reactions: Allergies NSAIDS (Non-Steroidal Anti-Inflamma Adverse Reaction (Verified 06/06/18 16:28) Home Medications: Ambulatory Orders Atorvastatin Calcium [Lipitor] 10 mg PO DAILY 11/01/15 Cholecalciferol (Vitamin D3) [Vitamin D3] 2,000 unit PO DAILY 07/14/16 Aspirin 81 mg PO ONCE 10/18/17 Famotidine [Pepcid] 20 mg PO DAILY PRN 10/18/17 Sulfamethoxazole/Trimethoprim [Bactrim Ds Tablet] 1 each PO DAILY 10/18/17 Tacrolimus [Envarsus Xr] 2 mg PO DAILY 10/18/17 Prednisone 5 mg PO DAILY tab-cap 12/30/17 Valganciclovir HCl [Valcyte] 450 mg PO DAILY 01/31/18 Mycophenolate Sodium [Myfortic] 360 mg PO DAILY 06/06/18 Rivaroxaban [Xarelto] 20 mg PO DAILY 06/06/18 Sennosides [Senokot] 8.6 mg PO BID 06/06/18 Transfer Form Completed: Yes Disposition Discussed With: Patient, Family GI Complaint Exam - Abdominal Pain Complaint/Exam Onset: Sudden Duration: 3 hrs Symptoms Are: Worse Additional Information: 1844 NOTIFIED BY RADIOLOGIST OF FINDINGS OF CT ABDOMEN SUSPECTED ACUTE INFLAMMATORY CHANGES IN RLQ, POSSIBLE EXTRALUMINAL AIR WITH POCKET OF AIR IN RT PELVIC GUTTER 1849: ADVISED [facility] ENDOSCOPY TECHNICAN. ADVISED TO CALL DR GILMORE TRANSPLANT [employer]GEON [employer] PRESIDENT [employer] 1853 CALLED THE [facility] TRANSFER LINE/AWAITING CALL FROM DR GILMORE ADVISED PT OF CURRENT STATUS [address] Man GILMORE AT [place] WHO ACCEPTED [facility] ACCEPTED FOR TRANSFER
[2018-06-06] MEDS ORDERED: DILAUDID 1 MG/ML SYRINGE IM STA (18:40)
[2018-06-06] MEDS ORDERED: ZOSYN 3.375 GM 3.375 GM in SODIUM CHLORIDE 50 ML IV STA (18:51)
--- NOTE | 2018-06-06 18:51 | CT ---
EXAM: CT of the abdomen and pelvis without contrast. HISTORY: Acute abdominal pain - right lower quadrant. History of pancreas transplant in right lower quadrant per discussion with the patient's ER physician. PROCEDURE: Contiguous axial CT images of the abdomen and pelvis without contrast with coronal and sa gittal reformats. Comparison: None. FINDINGS: The exam is limited without IV and oral contrast. The liver, gallbladder, spleen, adrenal glands and kidneys are normal in appearance. The [place] pancreas is normal in appearance. The trans plant pancreas is not definitely visualized. There are operative changes in the right lower quadrant . The abdominal aorta is within normal limits in diameter. The appendix is not visualized. There i s questionable free intraperitoneal air in the right lower quadrant. There is inflammatory stranding in the right lower quadrant. The bladder is adequately filled and normal in appearance. The semin al vesicles and prostate gland are unremarkable. The bones and soft tissues are unremarkable. Impression: Questionable free intraperitoneal air in the right lower quadrant, suspicious for a perfo rated viscus. Recommend stat surgical consult. Ill-defined inflammatory stranding in the right lower quadrant. The appendix is not visualized. The differential diagnosis includes ruptured appendicitis and abscess. Recommend stat surgical consult. Transplant pancreas not definitely visualized. Critical result: I personally discussed Impression #1, #2 and #3 with the patient's ER physician Dr. Walls on 06/06/2018 at 6:40 p.m.
== END 2018-06-06 19:38 | disposition short-term general hospital (02) ==
LOC: ED 16:19
DX: R10.31 Right lower quadrant pain (principal); Z94.83 Pancreas transplant status; R93.5 Abnormal findings on diagnostic imaging of other abdominal regions, including retroperitoneum; E10.9 Type 1 diabetes mellitus without complications; I10 Essential (primary) hypertension; N18.2 Chronic kidney disease, stage 2 (mild); Z79.899 Other long term (current) drug therapy
CPT/HCPCS: 36415; 80053; 82150; 83605; 83690; 84145; 85025; 85610; 85730; 87040; 96361; 96365; 96366; 96375; 96376; 99285

== ENCOUNTER 2018-06-12 07:31 | Outpatient (CLI) | payer OTHER | END 2018-06-12 07:32 | disposition home or self-care (01) | LOC: LAB 07:31 | PROVIDERS: ATTEND Internal Medicine Nephrology | DX: Z94.0 Kidney transplant status (principal); D89.9 Disorder involving the immune mechanism, unspecified; B25.9 Cytomegaloviral disease, unspecified | CPT/HCPCS: 36415; 80069; 80197; 82150; 83690; 85025 ==

== ENCOUNTER 2018-06-15 07:59 | Outpatient (CLI) | payer OTHER | END 2018-06-15 08:00 | disposition home or self-care (01) | LOC: LAB 07:59 | PROVIDERS: ATTEND Internal Medicine Nephrology | DX: Z94.0 Kidney transplant status (principal); E10.29 Type 1 diabetes mellitus with other diabetic kidney complication; E10.65 Type 1 diabetes mellitus with hyperglycemia; Z94.83 Pancreas transplant status | CPT/HCPCS: 36415; 83036; 84681 ==

== ENCOUNTER 2018-06-19 07:19 | Outpatient (CLI) | END 2018-06-19 07:20 | disposition home or self-care (01) | LOC: LAB 07:19 | PROVIDERS: ATTEND Internal Medicine Nephrology | DX: Z94.0 Kidney transplant status (principal); D89.9 Disorder involving the immune mechanism, unspecified; B25.9 Cytomegaloviral disease, unspecified | CPT/HCPCS: 36415; 80069; 80197; 82150; 83690; 85025 ==

== ENCOUNTER 2018-06-22 08:06 | Outpatient (CLI) | END 2018-06-22 08:07 | disposition home or self-care (01) | LOC: LAB 08:06 | PROVIDERS: ATTEND Internal Medicine Nephrology | DX: Z94.0 Kidney transplant status (principal); E10.29 Type 1 diabetes mellitus with other diabetic kidney complication; E10.65 Type 1 diabetes mellitus with hyperglycemia; Z94.83 Pancreas transplant status | CPT/HCPCS: 36415; 83036; 84681 ==

== ENCOUNTER 2018-06-26 07:38 | Outpatient (CLI) | END 2018-06-26 07:39 | disposition home or self-care (01) | LOC: LAB 07:38 | PROVIDERS: ATTEND Internal Medicine Nephrology | DX: Z94.83 Pancreas transplant status (principal); Z94.0 Kidney transplant status; D89.9 Disorder involving the immune mechanism, unspecified; B25.9 Cytomegaloviral disease, unspecified | CPT/HCPCS: 36415; 80053; 80197; 82150; 83690; 84100; 85025 ==

== ENCOUNTER 2018-07-03 07:26 | Outpatient (CLI) | payer OTHER | END 2018-07-03 07:27 | disposition home or self-care (01) | LOC: LAB 07:26 | PROVIDERS: ATTEND Internal Medicine Nephrology | DX: Z94.0 Kidney transplant status (principal); D89.9 Disorder involving the immune mechanism, unspecified; B25.9 Cytomegaloviral disease, unspecified | CPT/HCPCS: 36415; 80069; 80197; 82150; 83690; 85025 ==

== ENCOUNTER 2018-07-10 07:48 | Outpatient (CLI) | payer OTHER | END 2018-07-10 07:49 | disposition home or self-care (01) | LOC: LAB 07:48 | PROVIDERS: ATTEND Internal Medicine Nephrology | DX: Z94.0 Kidney transplant status (principal); D89.9 Disorder involving the immune mechanism, unspecified; B25.9 Cytomegaloviral disease, unspecified | CPT/HCPCS: 36415; 80069; 80197; 82150; 83690; 85025 ==

== ENCOUNTER 2018-07-18 08:38 | Outpatient (CLI) | END 2018-07-18 08:39 | disposition home or self-care (01) | LOC: LAB 08:38 | PROVIDERS: ATTEND Internal Medicine Nephrology | DX: Z94.0 Kidney transplant status (principal); D89.9 Disorder involving the immune mechanism, unspecified; B25.9 Cytomegaloviral disease, unspecified | CPT/HCPCS: 36415; 80069; 80197; 82150; 83690; 85025 ==

== ENCOUNTER 2018-07-26 06:53 | Outpatient (CLI) | END 2018-07-26 06:54 | disposition home or self-care (01) | LOC: LAB 06:53 | PROVIDERS: ATTEND Internal Medicine Nephrology | DX: Z94.0 Kidney transplant status (principal); D89.9 Disorder involving the immune mechanism, unspecified; B25.9 Cytomegaloviral disease, unspecified | CPT/HCPCS: 36415; 80069; 80197; 82150; 83690; 85025 ==

== ENCOUNTER 2018-08-02 07:04 | Outpatient (CLI) | payer OTHER | END 2018-08-02 07:05 | disposition home or self-care (01) | LOC: LAB 07:04 | PROVIDERS: ATTEND Internal Medicine Nephrology | DX: Z94.0 Kidney transplant status (principal); D89.9 Disorder involving the immune mechanism, unspecified; B25.9 Cytomegaloviral disease, unspecified | CPT/HCPCS: 36415; 80069; 80197; 82150; 83690; 85025 ==

== ENCOUNTER 2018-08-10 08:30 | Outpatient (CLI) | END 2018-08-10 08:31 | disposition home or self-care (01) | LOC: LAB 08:30 | PROVIDERS: ATTEND Internal Medicine Nephrology | DX: Z94.0 Kidney transplant status (principal); D89.9 Disorder involving the immune mechanism, unspecified; B25.9 Cytomegaloviral disease, unspecified | CPT/HCPCS: 36415; 80069; 80197; 82150; 83690; 85025 ==

== ENCOUNTER 2018-08-14 06:16 | Outpatient (CLI) | END 2018-08-14 06:17 | disposition home or self-care (01) | LOC: LAB 06:16 | PROVIDERS: ATTEND Internal Medicine Nephrology | DX: Z94.0 Kidney transplant status (principal); D89.9 Disorder involving the immune mechanism, unspecified; B25.9 Cytomegaloviral disease, unspecified | CPT/HCPCS: 36415; 80069; 80197; 82150; 83690; 85025 ==

== ENCOUNTER 2018-08-18 07:47 | Outpatient (CLI) ==
--- NOTE | 2018-08-18 10:38 | CT ---
Examination: CT abdomen and pelvis with contrast Clinical history: Pancreas transplant. Detailed thin slice axial images extend from lung bases through the pelvic perineum. Cardiac size is normal. There is no spleen or significant liver enlargement. Both organs appear homogeneous. The portal vein is patent. There is no cystic or solid pancreatic mass. Diameter of the pancreatic head is 2 cm with 1 cm diameter of the pancreatic body and 1.3 cm diameter of the pancreatic tail. No tr ansverse duct dilatation. Gallbladder appears intact. There is no periaortic adenopathy. Adrenal g lands are normal. There is similar enhancement of normal size kidneys with no renal obstruction. No periaortic adenopathy. Mild aortic calcinosis with moderate iliac artery atherosclerotic calcific c hange. Operative changes are noted just anterior to the right common iliac artery. This represents the site of pancreatic transplant. No pancreatic ductal dilatation. It is somewhat difficult to dif ferentiate pancreatic tissue from the donor duodenum. There is presumably a Herman loop in this area a s well. The donor common iliac artery appears patent. There appears to be an outflow vein directed toward the common iliac vein. The ileocecal valve appears intact. Contrast, previously ingested ext ends to the distal ileum level. Impression: 1. Right lower quadrant pancreatic transplant. 2. Nonobstructed, essentially normal size [place] pancreas. 3. Satisfactory function of the kidneys bilaterally with no obstruction or atrophy.
== END 2018-08-18 07:48 | disposition home or self-care (01) ==
LOC: RAD 07:47
PROVIDERS: ATTEND Internal Medicine Nephrology
DX: Z94.83 Pancreas transplant status (principal); I82.90 Acute embolism and thrombosis of unspecified vein

== ENCOUNTER 2018-08-21 07:43 | Outpatient (CLI) | END 2018-08-21 07:44 | disposition home or self-care (01) | LOC: LAB 07:43 | PROVIDERS: ATTEND Internal Medicine Nephrology | DX: Z94.0 Kidney transplant status (principal); D89.9 Disorder involving the immune mechanism, unspecified; B25.9 Cytomegaloviral disease, unspecified | CPT/HCPCS: 36415; 80069; 80197; 82150; 83690; 85025 ==

== ENCOUNTER 2018-08-26 21:52 | Emergency (ER) ==
[2018-08-26] MEDS: SODIUM CHLORIDE 1,000 ML IV STA (22:44)
[2018-08-26] MEDS: ZOFRAN 4 MG/2 ML IVP STA (22:46)
--- NOTE | 2018-08-26 22:58 | CT ---
Exam: CT of the abdomen pelvis without contrast History: Nausea, vomiting, abdominal pain Technique: [address] of the abdomen and pelvis without intravascular contrast FINDINGS: Technically inhibited in the absence of intravascular contrast. The lung bases are clear. No significant liver abnormality. The adrenals, pancreas and spleen are unremarkable. The stomach and hiatus are unremarkable.The gallbladder appears normal. Kidneys and proximal collecting system are unremarkable. Fluid distension of the right colon with fat stranding in the right lower quadrant . The bowel pattern appears nonobstructive. Mass in the right lower quadrant mesentery again seen r epresenting a pancreas transplant. 3 cm hypodensity in the tail of the transplant pancreas reportedl y representing evolving pancreatic tail hematoma. Atherosclerotic calcification of the aorta without aneurysm. Pelvic genitourinary structures appear normal. Pelvic bowel loops are unremarkable. No inflammatory change in the pelvic fat. No acute abnormality of the abdominal or pelvic skeleton. Impression: 1. Technically inhibited study in the absence of intravascular contrast. 2. Known transplant pancreas in the right lower quadrant. There are mild inflammatory changes in th e right lower quadrant mesenteric possibly related to colitis or pancreatitis. Fluid distension of t he right colon possibly related to colitis or colonic ileus. The bowel pattern is nonobstructive.
[2018-08-27] MEDS: SODIUM CHLORIDE 1,000 ML IV STA ×2 (00:01→04:00)
--- NOTE | 2018-08-27 00:46 | ED.PDOC ---
General ED Provider: Dr. LYSSA SWENSON-ER Chief Complaint: Nausea/Vomiting Stated Complaint: marlene had vomiting, diarrhea and im hurting Time Seen by Physician: 21:55 Mode of Arrival: Walk-In Information Source: Patient Exam Limitations: No limitations Primary Care Provider: DEEPAK MARRERO Nursing and Triage Documentation Reviewed and Agree: Yes Does patient meet sepsis criteria?: No System Inflammatory Response Syndrome: Not Applicable Sepsis Protocol: For patient's 13 years and over: Temp is 96.8 and below OR 101 and greater Pulse >90 BPM Resp >20/minute Acutely Altered Mental Status Are patient's symptoms suggestive of a new infection, such as: -Pneumonia -Skin, Soft Tissue -Endocarditis -UTI -Bone, Joint Infection -Implantable Device -Acute Abdominal Infection -Wound Infection -Meningitis -Blood Stream Catheter Infection -Unknown GI Complaint Exam - Vomiting/Diarrhea Complaint/Exam Onset/Duration: 3 days Symptoms Are: Still present Initial Severity: Mild Current Severity: Mild Character of Vomiting: Reports: Non-bilious Character of Diarrhea: Reports: Watery Aggravating: Reports: None Alleviating: Reports: None Associated Signs and Symptoms: Reports: Abdominal pain, Cramping Abdominal Findings: Present: None Kussmaul Respirations Present: No Differential Diagnoses: Pancreatitis Review of Systems - Review Of Systems Constitutional: Reports: No symptoms Eyes: Reports: No symptoms Ears, Nose, Mouth, Throat: Reports: No symptoms Respiratory: Reports: No symptoms Cardiac: Reports: No symptoms GI: Reports: Abdominal pain, Nausea, Vomiting : Reports: No symptoms Musculoskeletal: Reports: No symptoms Skin: Reports: No symptoms Neurological: Reports: No symptoms Endocrine: Reports: No symptoms Hematologic/Lymphatic: Reports: No symptoms All Other Systems: Reviewed and Negative Past Medical History - Past Medical History Previously Healthy: No Endocrine: Reports: DM 1 Cardiovascular: Reports: None, Hypertension Respiratory: Reports: None Hematological: Reports: None Gastrointestinal: Reports: None Genitourinary: Reports: CKD (stage 2 ) Neuro/Psych: Reports: None, Depression Musculoskeletal: Reports: Joint Pain Cancer: Reports: None Other Pertinent Past Medical History: both eyes-cataracts, cervical spine fusion - Surgical History General Surgical History: Reports: None, Orthopedic (trigger release right hand , shoulder manipulation bilateraly), Back Surgery (cervical spine fusion), Other (both eyes-cataracts, [employer]CRE[employer]PLANT) - Family History Family History: Reports: None - Social History Smoking Status: Former smoker Hx Substance Use: No Alcohol Screening: None - Immunizations Tetanus Shot up to Date: (UNKNOWN) Physical Exam - Physical Exam Appearance: Well-appearing, No pain distress, Well-nourished Eyes: PRIYANKA, EOMI, Conjunctiva clear ENT: Ears normal, Nose normal, Oropharynx normal Neck: Supple Respiratory: Airway patent, Breath sounds clear, Breath sounds equal, Respirations nonlabored Cardiovascular: RRR, Pulses normal, No rub, No murmur GI/: Soft, No masses, Bowel sounds normal, Tender Musculoskeletal: Normal strength, ROM intact, No edema, No calf tenderness Skin: Warm, Dry, Normal color Neurological: Sensation intact, Motor intact, Reflexes intact, Cranial nerves intact, Alert, Oriented Psychiatric: Affect appropriate Interpretation - Radiology Interpretation Radiology Interpretation By: Radiologist Radiology Results: Positive Exam Interpreted: CT Scan - EKG Interpretation Time of EKG #1: 00:45 Rate: Normal Rhythm: Sinus Ectopy: None [place]: [place] ST Segment: Normal Interpretation: nsr Physician Notification - Case Discussed Physician Notified: dr ponce---accepted in transfer Time of Notification: 01:53 Critical Care Note - Critical Care Note Total Time (mins): 30 Course - Course Hematology/Chemistry: 08/26/18 22:35 08/26/18 22:35 Orders, Labs, Meds: Lab Review 08/26/18 08/26/18 08/26/18 22:35 22:35 23:55 WBC 23.12 H RBC 4.96 Hgb 15.8 Hct 46.1 MCV 92.9 MCH 31.9 H MCHC 34.3 RDW Coeff of Seth 14.5 Plt Count 288 Immature Gran % (Auto) 0.4 Neut % (Auto) 83.1 Lymph % (Auto) 10.2 [place] % (Auto) 6.0 Eos % (Auto) 0.0 Baso % (Auto) 0.3 Immature Gran # (Auto) 0.1 Neut # (Auto) 19.2 H Lymph # (Auto) 2.4 [place] # (Auto) 1.4 Eos # (Auto) 0.0 Baso # (Auto) 0.1 Sodium 137.1 Potassium 4.71 Chloride 99.0 Carbon Dioxide 23.5 Anion Gap 19.31 BUN 39.0 H Creatinine 1.12 H Estimated GFR (MDRD) 69.00 BUN/Creatinine Ratio 34.82 Glucose 153.5 H Calcium 9.75 Total Bilirubin 2.45 H AST 28.1 ALT 25.9 Alkaline Phosphatase 82.2 Total Creatine Kinase 64.0 Troponin I 0.025 Total Protein 8.03 Albumin 4.58 Globulin 3.45 Albumin/Globulin Ratio 1.32 Amylase 95.4 Lipase 85.8 Urine Color Yellow Urine Clarity Clear Urine pH 5.0 Ur Specific Mace[place] 1.025 Urine Protein 2+ Urine Glucose (UA) Negative Urine Ketones 3+ Urine Blood 2+ Urine Nitrite Negative Urine Bilirubin 1+ Urine Urobilinogen 0.2 Ur Leukocyte Esterase Negative Urine Microscopic RBC 2-5 Urine Microscopic WBC 0-2 Ur Squamous Epith Cells Not present Hyaline Casts 0-2 Fine Granular Casts 0-2 Urine Mucus Trace Orders Category Date Time Status EKG-(ED ONLY) Stat CARDIO 08/26/18 22:23 Completed EKG-(ED ONLY) Stat CARDIO 08/26/18 23:15 Completed IV [ED IV/MEDIPORT/POWERPORT] .ONCE EMERGENCY 08/26/18 22:37 Active AMYLASE Stat LAB 08/26/18 22:35 Completed BLOOD CULTURE (ED ONLY) Stat LAB 08/26/18 22:55 Received CBC W/ AUTO DIFF Stat LAB 08/26/18 22:35 Completed COMPREHENSIVE METABOLIC PANEL Stat LAB 08/26/18 22:35 Completed CREATINE KINASE Stat LAB 08/26/18 22:35 Completed LIPASE Stat LAB 08/26/18 22:35 Completed TROPONIN I Stat LAB 08/26/18 22:35 Completed URINALYSIS C & S IF INDICATED Stat LAB 08/26/18 23:55 Completed 0.9 % Sodium Chloride [Saline Flush] MEDS 08/26/18 22:37 Ordered 1 syr IVF PRN PRN Ondansetron HCl/Pf [Zofran 4 mg/2 ml] MEDS 08/26/18 22:25 Discontinued 4 mg IVP ONCE STA Sodium Chloride 0.9% [Sodium Chloride] 1,000 ml MEDS 08/26/18 22:25 Discontinued IV BOLUS Sodium Chloride 0.9% [Sodium Chloride] 1,000 ml MEDS 08/26/18 23:[address] ABDOMEN/PELVIS WO CONTRAST Stat RADS 08/26/18 22:24 Completed Medications Generic Name Dose Route Start Last Admin Trade Name Freq PRN Reason Stop Dose Admin Sodium Chloride 1 syr 08/26/18 22:37 08/26/18 22:45 Saline Flush IVF 1 syr PRN PRN Administration To flush IV Discontinued Medications Generic Name Dose Route Start Last Admin Trade Name Janine PRN Reason Stop Dose Admin Sodium Chloride 1,000 mls @ 1,000 mls/hr 08/26/18 22:25 08/26/18 22:44 Sodium Chloride IV 08/26/18 23:24 1,000 mls/hr BOLUS STA Administration Sodium Chloride 1,000 mls @ 1,000 mls/hr 08/26/18 23:59 08/27/18 00:01 Sodium Chloride IV 08/27/18 00:58 1,000 mls/hr BOLUS STA Administration Ondansetron HCl 4 mg 08/26/18 22:25 08/26/18 22:46 Zofran 4 Mg/2 Ml IVP 08/26/18 22:26 4 mg ONCE STA Administration Vital Signs: Temp Pulse Resp BP Pulse Ox 08/26/18 21:54 98.9 F 88 24 144/76 H 98 Departure - Departure Time of Disposition: 01:53 Disposition: TSF SHORT-TRM HOSP Discharge Problem: Diarrhea Qualifiers: Diarrhea type: unspecified type Qualified Code(s): R19.7 - Diarrhea, unspecified Instructions: Acute Diarrhea (ED) Condition: Good Pt referred to PMD for follow-up: Yes IPMP verified?: No Allergies/Adverse Reactions: Allergies NSAIDS (Non-Steroidal Anti-Inflamma Adverse Reaction (Verified 08/26/18 22:04) CANT HAVE DUE TO KIDNEYS Home Medications: Ambulatory Orders Atorvastatin Calcium [Lipitor] 10 mg PO BEDTIME 11/01/15 Cholecalciferol (Vitamin D3) [Vitamin D3] 2,000 unit PO DAILY 07/14/16 Aspirin 81 mg PO DAILY 10/18/17 Famotidine [Pepcid] 20 mg PO BEDTIME 10/18/17 Sulfamethoxazole/Trimethoprim [Bactrim Ds Tablet] 1 each PO DAILY 10/18/17 Tacrolimus [Envarsus Xr] 6 mg PO DAILY 10/18/17 Prednisone 5 mg PO DAILY tab-cap 12/30/17 Valganciclovir HCl [Valcyte] 900 mg PO DAILY 01/31/18 Rivaroxaban [Xarelto] 20 mg PO DAILY 06/06/18 Sennosides [Senokot] 8.6 mg PO BID PRN 06/06/18 Acetaminophen [Tylenol] 500 - 1,000 mg PO Q6H PRN 08/26/18 Transfer Form Completed: Yes Disposition Discussed With: Patient
[2018-08-27] MEDS: ZOFRAN 4 MG/2 ML IVP STA (03:03)
[2018-08-27 04:14] VITALS: BP 162/89; TEMP 100
== END 2018-08-27 04:04 | disposition short-term general hospital (02) ==
LOC: ED 21:52
DX: R19.7 Diarrhea, unspecified (principal); R11.2 Nausea with vomiting, unspecified; R10.9 Unspecified abdominal pain; E10.9 Type 1 diabetes mellitus without complications; I10 Essential (primary) hypertension; N18.2 Chronic kidney disease, stage 2 (mild); Z79.899 Other long term (current) drug therapy; Z94.83 Pancreas transplant status
CPT/HCPCS: 36415; 80053; 81001; 82150; 82550; 83690; 84484; 85025; 87040; 93005; 93010; 96361; 96374; 96376; 99285

== ENCOUNTER 2018-10-19 07:39 | Outpatient (CLI) | END 2018-10-19 07:40 | disposition home or self-care (01) | LOC: LAB 07:39 | PROVIDERS: ATTEND Internal Medicine Nephrology | DX: Z94.0 Kidney transplant status (principal); D89.9 Disorder involving the immune mechanism, unspecified; B25.9 Cytomegaloviral disease, unspecified | CPT/HCPCS: 36415; 80069; 80197; 82150; 83690; 85025 ==

== ENCOUNTER 2018-10-26 07:23 | Outpatient (CLI) | END 2018-10-26 07:24 | disposition home or self-care (01) | LOC: LAB 07:23 | PROVIDERS: ATTEND Internal Medicine Nephrology | DX: Z94.0 Kidney transplant status (principal); D89.9 Disorder involving the immune mechanism, unspecified; B25.9 Cytomegaloviral disease, unspecified | CPT/HCPCS: 36415; 80069; 80197; 82150; 83690; 85025 ==

== ENCOUNTER 2018-11-02 06:14 | Outpatient (CLI) | END 2018-11-02 06:15 | disposition home or self-care (01) | LOC: LAB 06:14 | PROVIDERS: ATTEND Internal Medicine Nephrology | DX: Z94.0 Kidney transplant status (principal); D89.9 Disorder involving the immune mechanism, unspecified; B25.9 Cytomegaloviral disease, unspecified | CPT/HCPCS: 36415; 80069; 80197; 82150; 83690; 85025 ==